=== PATIENT | female | born 1975 | race Hispanic/Latino ===

== ENCOUNTER 2018-01-01 18:56 | Emergency (ER) | payer BC, OTHER ==
[2018-01-01 19:15] VITALS: PULSE 80; RESP 18; TEMP 98.4; BMI 35.7
[2018-01-01] MEDS ORDERED: Sodium Chloride 0.9% 1,000 ML IV STA (19:21)
--- NOTE | 2018-01-01 19:25 | ED PDOC ---
Arrival/HPI - General Chief Complaint: Female Genitourinary Time Seen by Provider: 01/01/18 19:12 Historian: Patient - History of Present Illness Narrative History of Present Illness (Text): 01/01/18 19:22 42-year-old female with no past medical history presents today with hematuria, dysuria, urinary frequency and urinary urgency. Patient complaining of slight lower abdominal pain. Denies vaginal bleeding or discharge. Denies chest pain or shortness of breath. Denies back pain. Patient denies fevers or chills. Patient states she has never had a urinary tract infection in her life. Patient states that symptoms started suddenly 2 hours ago. pt states initially she was just having dysuria, then she developed some hesitancy and she developed urgency and then currently in the emergency room she developed hematuria. Time/Duration: 1/2 hour Symptom Onset: Sudden Quality: Aching Severity Level: Mild Past Medical History - Provider Review Nursing Documentation Reviewed: Yes - Travel History Have you recently traveled outside [place] w/in the past 3 mons?: No - Past History Past History: No Previous - Infectious Disease Hx of Infectious Diseases: None - Cardiac Hx Cardiac Disorders: No - Pulmonary Hx Respiratory Disorders: No - Neurological Hx Neurological Disorder: No Hx Paralysis: No Hx Vertigo: Yes - HEENT Hx HEENT Disorder: Yes - Renal Hx Renal Disorder: No - Endocrine/Metabolic Hx Endocrine Disorders: No - Hematological/Oncological Hx Blood Disorders: No Hx Anemia: Yes Hx Blood Transfusions: No Hx Blood Transfusion Reaction: No - Integumentary Hx Dermatological Disorder: No - Musculoskeletal/Rheumatological Hx Musculoskeletal Disorders: No - Gastrointestinal Hx Gastrointestinal Disorders: No Other/Comment: GASTRIC SLEEVE - Genitourinary/Gynecological Hx Genitourinary Disorders: No - Psychiatric Hx Psychophysiologic Disorder: Yes Hx Anxiety: Yes Hx Depression: Yes Hx Emotional Abuse: No Hx Physical Abuse: No Hx Substance Use: No - Surgical History Hx Section: Yes Hx Cholecystectomy: Yes Hx Tonsillectomy: Yes Other/Comment: gastric sleeve - Anesthesia Hx Anesthesia: Yes Hx Anesthesia Reactions: Yes (NAUSEA / VOMITING) Hx Malignant Hyperthermia: No - Suicidal Assessment Feels Threatened In Home Enviroment: No Family/Social History - Physician Review Nursing Documentation Reviewed: Yes Family/Social History: Unknown Family HX Smoking Status: Former Smoker Hx Alcohol Use: Yes (SPECIAL OCC) Frequency of alcohol use: Socially Hx Substance Use: No Hx Substance Use Treatment: No Allergies/Home Meds Allergies/Adverse Reactions: Allergies No Known Allergies Allergy (Verified 06/04/15 19:02) Home Medications: Home Meds Medication Instructions Recorded Confirmed Clonazepam [Klonopin] 0.25 mg PO HS 07/20/12 06/04/15 Bupropion Hydrochloride 150 mg PO QPM 10/12/14 06/04/15 [Wellbutrin] PrednisoLONE 1% [Pred Forte 1% 2 drop OD Q2 06/04/15 06/04/15 Opht Susp] Review of Systems - Review of Systems Constitutional: absent: Fatigue, Fevers Respiratory: absent: SOB, Cough Cardiovascular: absent: Chest Pain, Palpitations Gastrointestinal: Abdominal Pain. absent: Constipation, Diarrhea, Nausea, Vomiting Genitourinary Female: Dysuria, Frequency, Hematuria. absent: Urine Output Changes, Vaginal Bleeding, Vaginal Discharge Musculoskeletal: absent: Arthralgias, Back Pain, Neck Pain Skin: absent: Rash, Pruritis Neurological: absent: Headache, Dizziness Psychiatric: absent: Anxiety, Depression Physical Exam Vital Signs Reviewed: Yes Vital Signs Temp Pulse Resp BP Pulse Ox 01/01/18 18:56 98.4 F 80 18 128/86 99 Temperature: Afebrile Blood Pressure: Normal Pulse: Regular Respiratory Rate: Normal Appearance: Positive for: Well-Appearing, Non-Toxic, Comfortable Pain Distress: None Mental Status: Positive for: Alert and Oriented X 3 - Systems Exam Head: Present: Atraumatic Mouth: Present: Moist Mucous Membranes Neck: Present: Normal Range of Motion Respiratory/Chest: Present: Clear to Auscultation, Good Air Exchange. No: Respiratory Distress, Accessory Muscle Use Cardiovascular: Present: Regular Rate and Rhythm, Normal S1, S2. No: Murmurs Abdomen: No: Tenderness, Distention, Peritoneal Signs, Rebound, Guarding Back: Present: Normal Inspection. No: CVA Tenderness, Midline Tenderness, Paraspinal Tenderness Upper Extremity: Present: Normal ROM Lower Extremity: Present: Normal ROM Neurological: Present: GCS=15 Skin: Present: Warm, Dry, Normal Color. No: Rashes Psychiatric: Present: Alert, Oriented x 3 Medical Decision Making ED Course and Treatment: 01/01/18 19:24 Patient is nontoxic well appearing with stable vital signs presenting with hematuria, dysuria, and abdominal pain. CBC wbc; 11.4 CMP wnl INR; wnl Urinalysis: + blood, + nitrates, + leukocytes CAT scan: FINDINGS: Lung bases: Unremarkable. No mass. No consolidation. ABDOMEN: Liver: Unremarkable. Gallbladder and bile ducts: Cholecystectomy. No ductal dilation. Pancreas: Unremarkable. No ductal dilation. Spleen: Unremarkable. No splenomegaly. Adrenals: Unremarkable. No mass. Kidneys and ureters: Unremarkable. No stones within either kidney or ureter and no hydronephrosis. Stomach and bowel: Gastric sleeve. Mild fecal retention in the colon. No obstruction. No mucosal thickening. PELVIS: Appendix: Normal appendix. Bladder: There is mild inflammation around the anterior bladder wall which could be due to cystitis. No stones. Reproductive: Unremarkable as visualized. ABDOMEN and PELVIS: Intraperitoneal space: Unremarkable. No free air. No significant fluid collection. Bones/joints: No acute fracture. No dislocation. Soft tissues: Very small abdominal wall hernia containing fat. Vasculature: Unremarkable. No abdominal aortic aneurysm. Lymph nodes: Unremarkable. No enlarged lymph nodes. IMPRESSION: 1. No stones within either kidney or ureter and no hydronephrosis. 2. There is mild inflammation around the anterior bladder wall which could be due to cystitis Patient reassessment: pt non toxic well appearing; no distress . Discussed all results with patient in depth. Discussed CAT scan results in depth with the patient. Advised patient to take antibiotics twice daily for urinary tract infection/cystitis. Advised follow-up with the urologist within the next 2 days. Advised immediate return if symptoms worsen persist or if new concerning symptoms develop Patient verbalizes understanding of discharge instructions and need for immediate followup. all aspects of this case were discussed the attending of record. Impression: urinary tract infection, cystitis, hematuria Motrin every 6 hours as needed for pain Keflex; 1 capsule twice daily x 7 days. Follow up with primary care physician within the next 2 days Follow up with the urologist within the next 2 days. Return immediately if symptoms worsen persist or if new symptoms develop: High fevers, increasing pain, vomiting, diarrhea or any other concerning symptoms develop Re-evaluation Time: 20:45 Reassessment Condition: Re-examined, Improved - Lab Interpretations Lab Results: 01/01/18 19:37 01/01/18 19:37 Lab Results 01/01/18 19:37: WBC 11.4 H D, RBC 4.17, Hgb 12.4, Hct 36.4, MCV 87.3, MCH 29.7, MCHC 34.1, RDW 12.6, Plt Count 189, MPV 11.1 H, Gran % 72.8 H, Lymph % (Auto) 19.5 L, [place] % (Auto) 6.3 H, Eos % (Auto) 1.0 L, Baso % (Auto) 0.4, Gran # 8.27 H, Lymph # (Auto) 2.2, [place] # (Auto) 0.7 H, Eos # (Auto) 0.1, Baso # (Auto) 0.05 01/01/18 19:37: Sodium 142, Potassium 4.0, Chloride 103, Carbon Dioxide 27, Anion Gap 15, BUN 20, Creatinine 0.8, Est GFR ( Amer) > 60, Est GFR (Non- Af Amer) > 60, Random Glucose 96, Calcium 9.7, Total Bilirubin 0.3, AST 26, ALT 31, Alkaline Phosphatase 69, Total Protein 7.8, Albumin 4.2, Globulin 3.5, Albumin/Globulin Ratio 1.2 01/01/18 19:37: PT 10.8, INR 0.95, APTT 28.8 01/01/18 19:20: Urine Color Light red, Urine Appearance Cloudy, Urine pH 7.0, Ur Specific [place] 1.015, Urine Protein 100 H, Urine Glucose (UA) Negative, Urine Ketones Negative, Urine Blood Large H, Urine Nitrate Positive H, Urine Bilirubin Small H, Urine Urobilinogen 1.0 H, Ur Leukocyte Esterase Large H - RAD Interpretation Radiology Orders: 01/01/18 19:21 ABD & PELVIS W/O PO OR IV CONT [CT] Stat - Medication Orders Current Medication Orders: Discontinued Medications Sodium Chloride (Sodium Chloride 0.9%) 1,000 mls @ 999 mls/hr IV .Q1H1M STA Stop: 01/01/18 20:21 Last Admin: 01/01/18 19:40 Dose: 999 mls/hr eMAR Start Stop Document 01/01/18 19:40 VENKATA (Rec: 01/01/18 19:40 VENKATA [id number]) Intravenous Solution Start Date 01/01/18 Start Time 19:40 End Date 01/01/18 End time 20:41 Total Infusion Time 61 Disposition/Present on Arrival - Present on Arrival Any Indicators Present on Arrival: No History of DVT/PE: No History of Uncontrolled Diabetes: No Urinary Catheter: No History of Decub. Ulcer: No History Surgical Site Infection Following: None - Disposition Have Diagnosis and Disposition been Completed?: Yes Diagnosis: Cystitis, Urinary tract infection Disposition: HOME/ ROUTINE Disposition Time: 20:43 Patient Plan: Discharge Patient Problems: Current Active Problems Problem Status Onset Cystitis Acute Urinary tract infection Acute Condition: GOOD Discharge Instructions (ExitCare): Urinary Tract Infection, Adult (DC) Additional Instructions: Motrin every 6 hours as needed for pain Keflex; 1 capsule twice daily x 7 days. Follow up with primary care physician within the next 2 days Follow up with the urologist within the next 2 days. Return immediately if symptoms worsen persist or if new symptoms develop: High fevers, increasing pain, vomiting, diarrhea or any other concerning symptoms develop Prescriptions: Cephalexin [Keflex] 500 mg PO BID #14 capsule Ibuprofen [Motrin] 600 mg PO Q6H PRN #20 tab PRN Reason: pain/fever reduction Referrals: Bandar Redman MD [Primary Care Provider] - Follow up with primary Sekou Cuevas MD [Staff Provider] - Follow up with primary Forms: [facility] ([place]), WORK NOTE
[2018-01-01 19:56] LABS: BASO # 0.05 K/mm3 (0.0-2.0); BASO % 0.4 % (0.0-3.0); EOS # 0.1 (0.0-0.7); GRAN # 8.27 (1.4-6.5); GRAN % 72.8 % (50.0-68.0); HEMOGLOBIN 12.4 g/dL (12.0-16.0); LYMPH # 2.2 (1.2-3.4); LYMPH % 19.5 % (22.0-35.0); MEAN CELL VOLUME 87.3 fl (80.0-105.0); MEAN CORPUSCULAR HEMOGLOBIN 29.7 pg (25.0-35.0); MEAN CORPUSCULAR HGB CONC 34.1 g/dl (31.0-37.0); MEAN PLATELET VOLUME 11.1 fl (7.0-11.0); MONO # 0.7 (0.1-0.6); MONO % 6.3 % (1.0-6.0); RBC 4.17 10^6/uL (3.5-6.1); RED CELL DISTRIBUTION WIDTH 12.6 % (11.5-14.5); WHITE BLOOD COUNT 11.4 10^3/ul (4.5-11.0)
[2018-01-01 20:06] LABS: INR 0.95 (0.93-1.08); PARTIAL THROMBOPLASTIN TIME 28.8 Seconds (25.1-36.5); PROTHROMBIN TIME 10.8 SECONDS (9.4-12.5)
[2018-01-01 20:12] LABS: ALB/GLOB RATIO 1.2 (1.1-1.8); ALBUMIN 4.2 g/dL (3.0-4.8); ALT/SGPT 31 U/L (7-56); AST/SGOT 26 U/L (14-36); BLOOD UREA NITROGEN 20 mg/dL (7-21); CALCIUM 9.7 mg/dL (8.4-10.5); GFR AFRICAN-AMERICAN > 60; GFR NON-AFRICAN AMERICAN > 60
[2018-01-01 20:40] LABS: URINE BILIRUBIN SMALL (NEGATIVE); URINE BLOOD LARGE (NEGATIVE); URINE GLUCOSE (UA) NEGATIVE (NEGATIVE); URINE LEUKOCYTE ESTERASE LARGE Leu/uL (NEGATIVE); URINE PROTEIN 100 mg/dL (<30 mg/dL)
[2018-01-01 20:41] LABS: URINE APPEARANCE CLOUDY (CLEAR); URINE COLOR LIGHT RED (YELLOW)
[2018-01-01 20:57] LABS: URINE BACTERIA MANY (NEG); URINE RBC TNTC /hpf (0-2); URINE WBC TNTC /hpf (0-6)
[2018-01-01 21:28] VITALS: BP 125/78; O2SAT 100
--- NOTE | 2018-01-02 08:54 | CT ---
PROCEDURE: CT Abdomen and Pelvis without intravenous contrast HISTORY: ABDOMINAL PAIN/ hematuria COMPARISON: None. TECHNIQUE: Technique. Contrast dose: Radiation dose: Total exam DLP = mGy-cm. This CT exam was performed using one or more of the following dose reduction techniques: Automated exposure control, adjustment of the mA and/or kV according to patient size, and/or use of iterative reconstruction technique. FINDINGS: LOWER THORAX: Unremarkable. LIVER: Unremarkable. No gross lesion or ductal dilatation. GALLBLADDER AND BILE DUCTS: Status post cholecystectomy and gastric bypass surgery. PANCREAS: Unremarkable. No gross lesion or ductal dilatation. SPLEEN: Unremarkable. ADRENALS: Unremarkable. No mass. KIDNEYS AND URETERS: Unremarkable. No hydronephrosis. No solid mass. VASCULATURE: Unremarkable. No aortic aneurysm. BOWEL: Unremarkable. No obstruction. No gross mural thickening. APPENDIX: Unremarkable. Normal appendix. PERITONEUM: Unremarkable. No free fluid. No free air. LYMPH NODES: Unremarkable. No enlarged lymph nodes. BLADDER: Unremarkable. REPRODUCTIVE: Unremarkable. BONES: No acute fracture. OTHER FINDINGS: Minimal free fluid in the left hemipelvis. IMPRESSION: No acute pathology.
== END 2018-01-01 21:22 | disposition home or self-care (01) ==
LOC: ED 18:56
DX: N30.90 Cystitis, unspecified without hematuria (principal)
CPT/HCPCS: 74176; 80053; 81001; 85025; 85610; 85730; 87086; 87181; 96360; 99284; J7030